=== PATIENT | female | born 1980 | race African-American/Black ===

== ENCOUNTER 2021-10-30 07:25 | Emergency (ER) | payer OTHER ==
[~2021-10-30] VITALS: Ht 167.6 cm; Wt 76.2 kg
[2021-10-30] MEDS ORDERED: ACETAMINOPHEN500 MG PO (08:02)
[2021-10-30] MEDS ORDERED: GABAPENTIN300 MG PO (08:02)
[2021-10-30] MEDS ORDERED: VALTREX1000 MG PO (08:02)
== END 2021-10-30 08:12 | disposition home or self-care (01) ==
LOC: FSED 07:49
DX: R21 Rash and other nonspecific skin eruption (principal)
CPT/HCPCS: 99282